=== PATIENT | male | born 1960 | race Caucasian/White ===

== ENCOUNTER 2021-07-22 07:51 | Day surgery (SDC) | payer OTHER ==
[~2021-07-22] VITALS: Ht 170.2 cm; Wt 80.4 kg
[~2021-07-22 07:51] MED LIST: ASPI-1450 PO; ASPIRIN 81 MG CHEWABLE TABLET PO ONE; ATOR20TA86 PO; CYCL-448 PO; DIAZEPAM 5 MG TABLET PO ONE; DiphenhydrAMINE HCL 50 MG CAPSULE PO ONE; FINA-27 PO; IBUP-2071 PO; INSLAN SQ; INSU100I8 SQ; METF-1185 PO; METO25 PO; NITR0.4T52 SL; PRED-729 PO; RAMI10CA69 PO; SITA1TBM7 PO; SODIUM CHLORIDE 0.9% 1,000 ML IV SCH; SODIUM CHLORIDE 0.9% 1,000 ML ONE; TAMS-13 PO
[2021-07-22] MEDS ORDERED: SODIUM CHLORIDE 0.9% 1,000 ML IV ONE (08:30)
[2021-07-22] MEDS ORDERED: ASPIRIN 81 MG CHEWABLE TABLET ONE ×2 (08:56→09:02)
[2021-07-22] MEDS ORDERED: DIAZEPAM 5 MG TABLET ONE (08:59)
[2021-07-22 09:11] LABS: GLUCOMETER DEV NAME(LOC) SDS.; GLUCOSE,POINT OF CARE 155 MG/DL (70-110)
[2021-07-22] MEDS ORDERED: IOHEXOL 300 MG/ML 50 ML VIAL ONE (10:44)
[2021-07-22] MEDS ORDERED: SODIUM BICARBONATE 50 MEQ/50 ML VIAL ONE (10:45)
[2021-07-22] MEDS ORDERED: IOHEXOL 300 MG/ML 150 ML VIAL ONE (10:45)
[2021-07-22] MEDS ORDERED: IOHEXOL 300 MG/ML 100 ML VIAL ONE (10:45)
[2021-07-22] MEDS ORDERED: LIDOCAINE/PF 1% 30 ML VIAL ONE (10:45)
[2021-07-22] MEDS ORDERED: HEPARIN SODIUM 1000 UNITS/NS 500 ML ONE (10:45)
[2021-07-22 10:51] VITALS: BP 99/68
[2021-07-22] MEDS ORDERED: FentaNYL CITRATE PF 100 MCG/2 ML VIAL ONE (11:01)
[2021-07-22] MEDS ORDERED: MIDAZOLAM HCL 2 MG/2 ML VIAL ONE (11:01)
[2021-07-22] MEDS ORDERED: HEPARIN SODIUM 1000 UNITS/NS 1,000 ML IARTER ONE (11:15)
[2021-07-22] MEDS ORDERED: MIDAZOLAM HCL 2 MG/2 ML VIAL IVP ONE (11:15)
[2021-07-22] MEDS ORDERED: IOHEXOL 300 MG/ML 50 ML VIAL ICOR ONE (11:15)
[2021-07-22] MEDS ORDERED: FentaNYL CITRATE PF 100 MCG/2 ML VIAL IVP ONE (11:15)
[2021-07-22] MEDS ORDERED: LIDOCAINE 1% 30 ML/SOD BICARB 8.4% 4 ML SQ ONE (11:15)
[2021-07-22] MEDS ORDERED: IOHEXOL 300 MG/ML 100 ML VIAL ICOR ONE (11:15)
[2021-07-22] MEDS ORDERED: IOHEXOL 300 MG/ML 150 ML VIAL ICOR ONE (11:15)
[2021-07-22] MEDS ORDERED: SODIUM CHLORIDE 0.9% 500 ML IV ONE (11:30)
== END 2021-07-22 15:40 | disposition home or self-care (01) ==
LOC: CATHLAB 07:51
PROVIDERS: ATTEND Internal Medicine Interventional Cardiology
DX: R94.39 Abnormal result of other cardiovascular function study (principal); I20.0 Unstable angina; E78.5 Hyperlipidemia, unspecified; E11.9 Type 2 diabetes mellitus without complications; I10 Essential (primary) hypertension; Z86.73 Personal history of transient ischemic attack (TIA), and cerebral infarction without residual deficits; E66.9 Obesity, unspecified; Z98.890 Other specified postprocedural states; Z20.822 Contact with and (suspected) exposure to COVID-19; Z79.899 Other long term (current) drug therapy; Z68.27 Body mass index [BMI] 27.0-27.9, adult; Z79.82 Long term (current) use of aspirin; Z79.4 Long term (current) use of insulin
CPT/HCPCS: 82962; 93005; 93458; 99152; C1760; J1644; J2250; J3010; J3490 ×2; J7030; Q9967